=== PATIENT | male | born 1950 | race Caucasian/White ===

== ENCOUNTER 2022-11-21 08:44 | Day surgery (SDC) | payer MEDICARE, BC ==
[2022-11-17 12:44] VITALS: BMI 34.5
[2022-11-21] MEDS ORDERED: Iopamidol 370 76% 100 ML VIAL ONE (09:02)
[2022-11-21 09:52] LABS: #Eosinphils 0.1 thou/uL (0.0-0.7); #Monocytes 0.5 thou/uL (0.11-0.59); #Neutrophils 3.6 thou/uL (1.40-6.50); %Basophils 0.5 % (0.0-1.0); %Eosinophils 1.6 % (0.0-10.0); %Lymphocytes 33.1 % (21.0-51.0); %Monocytes 8.1 % (0.0-10.0); %Neutrophils 56.5 % (42.0-75.0); Hemoglobin 14.1 g/dL (14.0-18.0); Mean Corpuscular HGB CONC 33.8 g/dL (32.0-36.0); Mean Corpuscular Hemoglobin 29.4 pg (27.0-31.0); Mean Corpuscular Volume 87.1 fl (78.0-98.0); Mean Platelet Volume 9.2 fL (7.4-10.4); Platelet Count 244 10x3/uL (130-400); RBC Distribution Width 13.4 % (11.5-14.5); Red Blood Cell (RBC) Count 4.79 mill/uL (4.70-6.10); White Blood Cell (WBC) Count 6.3 10x3/uL (4.8-10.8)
[2022-11-21 10:04] LABS: Prothrombin Time 13.3 sec (12.0-14.7)
[2022-11-21 10:05] LABS: PTT 31.2 sec (22.9-36.1)
[2022-11-21 10:18] LABS: ALT (SGPT) 23 U/L (8-55); AST (SGOT) 18 U/L (5-34); Albumin 4.3 g/dL (3.4-4.8); Alkaline Phosphatase 98 U/L (40-110); Anion Gap 10 mmol/L (10-20); BUN (Urea Nitrogen) 17 mg/dL (8.4-25.7); Bilirubin, Direct 0.3 mg/dL (0.1-0.3); Bilirubin, Total 0.6 mg/dL (0.2-1.2); Calc. Creatinine Clearance 115 mL/min (70-130); Calcium 10.2 mg/dL (7.8-10.44); Carbon Dioxide 22 mmol/L (23-31); Cardiac Risk 2.6 (Less than 4.5); Chloride 109 mmol/L (98-107); Cholesterol 169 mg/dl (< 200 Desired); Estimated GFR 91; Globulin 2.9 g/dL (2.4-3.5); Glucose 100 mg/dL (83-110); HDL Cholesterol 66 mg/dL (>60 Neg Risk); LDL Cholesterol, Calculated 81 mg/dL; Potassium 4.3 mmol/L (3.5-5.1); Protein, Total 7.2 g/dL (5.8-8.1); Sodium 137 mmol/L (136-145); Triglycerides 110 mg/dL (Less than 150)
[2022-11-21] MEDS ORDERED: Lidocaine 1% (PF) 30 ML VIAL ONE (10:50)
[2022-11-21] MEDS ORDERED: Midazolam HCl 2 mg/2 ml Vial ONE (10:55)
[2022-11-21] MEDS ORDERED: fentaNYL 50 mcg/mL 1 mL Vial ONE (10:56)
[2022-11-21] MEDS ORDERED: Heparin 10,000 UNITS/ 10 ML VIAL ONE (11:24)
[2022-11-21 12:31] LABS: Actual Bicarbonate (HCO3v) 21.5 mEq/L (22-28); Base Excess -2.4 mEq/L (-2.0 to +3.0); Base Excess -2.8 mEq/L (-2.0 to +3.0); Calcium, Ionized (venous) 1.21 mmol/L (1.16-1.32); Chloride (VBG) 107 mmol/L (98-106); Chloride (VBG) 108 mmol/L (98-106); Hematocrit-VBG 41 % (42.0-52.0); Hemoglobin (Hb) 13.9 g/dL (12.6-17.4); Potassium (VBG) 3.95 mmol/L (3.70-5.30); Potassium (VBG) 4.04 mmol/L (3.70-5.30); Sodium 137.3 mmol/L (133-146); Sodium 137.7 mmol/L (133-146); pH (venous) 7.411 (7.32-7.43)
[2022-11-21 12:32] LABS: Analyzer IN Cardio OR
== END 2022-11-21 14:50 | disposition home or self-care (01) ==
LOC: SDC 08:44
PROVIDERS: ATTEND Internal Medicine Cardiovascular Disease
DX: I35.0 Nonrheumatic aortic (valve) stenosis (principal); I35.1 Nonrheumatic aortic (valve) insufficiency; E78.00 Pure hypercholesterolemia, unspecified; I11.0 Hypertensive heart disease with heart failure; I50.32 Chronic diastolic (congestive) heart failure; Z90.49 Acquired absence of other specified parts of digestive tract; Z90.89 Acquired absence of other organs; Z79.899 Other long term (current) drug therapy; Z88.1 Allergy status to other antibiotic agents; Z88.2 Allergy status to sulfonamides
CPT/HCPCS: 71045; 80053; 80061; 80076; 82805; 85025; 85610; 85730; 93005; 93460; C1751; C1769 ×3; C1894; J3010; 36415; 85347; 93010; 99152; 99153; J1644; J2001; J2250; Q9967

== ENCOUNTER 2022-12-09 15:00 | Inpatient (IN) | payer MEDICARE, BC ==
[2022-12-09 15:57] LABS: Hemoglobin 12.8 g/dL (13.5-17.5); Mean Corpuscular HGB CONC 33.7 g/dL (32.0-36.0); Mean Corpuscular Hemoglobin 29.7 pg (27.0-33.0); Mean Corpuscular Volume 88.2 fl (81.2-95.1); Mean Platelet Volume 9.5 fl (7.4-10.4); Platelet Count 260 10x3/uL (150-450); RBC Distribution Width 13.4 % (11.5-14.5); Red Blood Cell (RBC) Count 4.31 10x6/uL (4.32-5.72)
[2022-12-09 16:29] LABS: Anion Gap 12 mmol/L (10-20); BUN (Urea Nitrogen) 17 mg/dL (8.4-25.7); Calc. Creatinine Clearance 0 mL/min (70-130); Calcium 9.7 mg/dL (7.8-10.44); Carbon Dioxide 22 mmol/L (23-31); Chloride 111 mmol/L (98-107); Estimated GFR 88; Glucose 92 mg/dL (83-110); Potassium 4.4 mmol/L (3.5-5.1); Sodium 141 mmol/L (136-145)
[2022-12-12] MEDS ORDERED: Vancomycin (BATCH) 1.5 GRAM/300 ML BAG ONE (06:13)
[2022-12-12] MEDS ORDERED: Lidocaine 1% MPF 2 ML VIAL ONE (06:13)
[2022-12-12] MEDS ORDERED: Dexamethasone 4 mg/ml Vial ONE (06:14)
[2022-12-12] MEDS ORDERED: Albumin 5% 500 ML ONE (06:15)
[2022-12-12] MEDS ORDERED: Bupivacaine HCl 0.5%/Epinephrine 1:200,000/PF 30 ml Vial ONE (06:15)
[2022-12-12] MEDS ORDERED: Midazolam HCl 2 mg/2 ml Vial ONE (06:40)
[2022-12-12] MEDS ORDERED: Fentanyl 250 MCG/5 ML VIAL ONE ×2 (06:40→06:42)
[2022-12-12] MEDS ORDERED: Dexmedetomidine 200 MCG/2 ML VIAL ONE ×2 (06:41→06:42)
[2022-12-12] MEDS ORDERED: Heparin 10,000 UNITS/1 ML VIAL 30,000 UNITS in Sodium Chloride 0.9% 1,000 ML FS SCH (07:00)
[2022-12-12] MEDS ORDERED: Sodium Chloride 0.9% 100 ML ONE (07:23)
[2022-12-12] MEDS ORDERED: CEFAZOLIN 2 GM VIAL ONE (07:23)
[2022-12-12] MEDS ORDERED: Protamine Sulfate 250 MG/25 ML VIAL ONE (07:31)
[2022-12-12] MEDS ORDERED: Thrombin 5000 UNITS/5 ML VIAL ONE (07:31)
[2022-12-12] MEDS ORDERED: Heparin 30,000 units/30 ml VIAL ONE (07:31)
[2022-12-12] MEDS ORDERED: PROPOFOL 200 MG/20 ML VIAL ONE (07:31)
[2022-12-12] MEDS ORDERED: Esmolol 100 MG/10 ML VIAL ONE (07:31)
[2022-12-12] MEDS ORDERED: Norepinephrine 4 MG/4 ML VIAL ONE (07:31)
[2022-12-12] MEDS ORDERED: Lidocaine 2% PF 100 mg/5 ml Syringe ONE (07:31)
[2022-12-12] MEDS ORDERED: Heparin 5,000 UNITS/ML VIAL ONE (07:31)
[2022-12-12] MEDS ORDERED: Aminocaproic Acid 5 GM/20 ML VIAL ONE (07:31)
[2022-12-12] MEDS ORDERED: Cardioplegic Soln 1,000 ML BAG ONE (07:31)
[2022-12-12] MEDS ORDERED: NEOSTIGMINE 3 MG/3 ML SYR 3 MG/3 ML SYRINGE ONE (07:31)
[2022-12-12] MEDS ORDERED: Lidocaine 1% PF 5 ML VIAL ONE (07:31)
[2022-12-12] MEDS ORDERED: Mannitol 12.5 GM/50 ML ONE (07:31)
[2022-12-12] MEDS ORDERED: Vecuronium 10 MG VIAL ONE (07:31)
[2022-12-12] MEDS ORDERED: Nitroglycerin 50 MG/250 ML BOT ONE (07:31)
[2022-12-12] MEDS ORDERED: Glycopyrrolate 0.2 MG/ML 5 ML SYRINGE ONE (07:31)
[2022-12-12] MEDS ORDERED: Vancomycin 1 GM VIAL ONE (07:31)
[2022-12-12] MEDS ORDERED: Magnesium 5 GM/10 ML VIAL ONE (07:31)
[2022-12-12] MEDS ORDERED: Sodium Bicarb 50 MEQ/50 ML Abboject 8.4% SYRINGE ONE (07:31)
[2022-12-12] MEDS ORDERED: Calcium Chloride 1 GM/10 ML Abboject SYRINGE ONE (07:31)
[2022-12-12] MEDS ORDERED: Potassium Chloride 60 MEQ/30 ML VIAL ONE (07:31)
[2022-12-12] MEDS ORDERED: Insulin Regular 300 UNITS/3 ML VIAL ONE (09:20)
[2022-12-12] MEDS ORDERED: NOREPINEPHRINE 8 MG/250 ML-D5W 250 ML IVPB PRN (11:36)
[2022-12-12] MEDS ORDERED: fentaNYL 50 mcg/mL 1 mL Vial SLOW IVP PRN ×2 (11:36)
[2022-12-12] MEDS ORDERED: Guaifenesin DM 100-10/5 ML UDCUP PO PRN (11:36)
[2022-12-12] MEDS ORDERED: Ondansetron PF 4 MG/2 ML Vial IVP PRN (11:36)
[2022-12-12] MEDS ORDERED: Mag-Al 1200 mg/1200 mg/30 ML UDCUP PO PRN (11:36)
[2022-12-12] MEDS ORDERED: Morphine 2 MG/ML VIAL SLOW IVP PRN (11:36)
[2022-12-12] MEDS ORDERED: Ipratropium/Albuterol 3 ML NEB NEB PRN (11:36)
[2022-12-12] MEDS ORDERED: Hetastarch 6% 500 ML 500 ML IVPB PRN (11:36)
[2022-12-12] MEDS ORDERED: Bisacodyl 10 MG SUPP PR PRN (11:36)
[2022-12-12] MEDS ORDERED: Potassium Chloride 20 MEQ/100 ML PREMIX BAG IVPB PRN (11:36)
[2022-12-12] MEDS ORDERED: niCARdipine 25 MG in Sodium Chloride 0.9% 250 ML 250 ML IVPB PRN (11:36)
[2022-12-12] MEDS ORDERED: Nitroglycerin 50 MG/250 ML BOT 250 ML IVPB PRN (11:36)
[2022-12-12] MEDS ORDERED: Bisacodyl 5 MG TAB PO PRN (11:36)
[2022-12-12] MEDS ORDERED: traMADol HCl 50 MG TAB PO PRN ×2 (11:36)
[2022-12-12 11:41] LABS: #Eosinphils 0.1 thou/uL (0.0-0.7); #Monocytes 0.6 thou/uL (0.11-0.59); #Neutrophils 10.3 thou/uL (1.40-6.50); %Basophils 0.2 % (0.0-1.0); %Eosinophils 0.9 % (0.0-10.0); %Lymphocytes 15.5 % (21.0-51.0); %Monocytes 4.8 % (0.0-10.0); %Neutrophils 77.9 % (42.0-75.0); Hemoglobin 10.6 g/dL (14.0-18.0); Mean Corpuscular HGB CONC 33.2 g/dL (32.0-36.0); Mean Corpuscular Hemoglobin 29.9 pg (27.0-31.0); Mean Corpuscular Volume 89.9 fl (78.0-98.0); Mean Platelet Volume 9.2 fL (7.4-10.4); Platelet Count 166 10x3/uL (130-400); RBC Distribution Width 13.6 % (11.5-14.5); Red Blood Cell (RBC) Count 3.55 mill/uL (4.70-6.10); White Blood Cell (WBC) Count 13.3 10x3/uL (4.8-10.8)
[2022-12-12 11:52] VITALS: BMI 32.8
[2022-12-12 11:55] LABS: INR-International Normal Ratio 1.3; Prothrombin Time 16.9 sec (12.0-14.7)
[2022-12-12 11:58] LABS: Anion Gap 9 mmol/L (10-20); BUN (Urea Nitrogen) 16 mg/dL (8.4-25.7); Calc. Creatinine Clearance 114 mL/min (70-130); Calcium 8.2 mg/dL (7.8-10.44); Carbon Dioxide 22 mmol/L (23-31); Chloride 116 mmol/L (98-107); Estimated GFR 92; Glucose 117 mg/dL (83-110); Potassium 4.2 mmol/L (3.5-5.1); Sodium 143 mmol/L (136-145)
[2022-12-12] MEDS ORDERED: Ketorolac Tromethamine 30 MG/ML VIAL ONE (12:06)
[2022-12-12] MEDS ORDERED: Nitroglycerin 0.4 MG TAB (25 Tab Bottle) ONE (12:12)
[2022-12-12] MEDS ORDERED: Nitroglycerin 50 MG/250 ML BOT 250 ML ONE (12:13)
[2022-12-12] MEDS ORDERED: HUMULIN R 100 UNITS in Sodium Chloride 0.9% 100 ML IVPB SCH (12:30)
[2022-12-12] MEDS ORDERED: Glucagon 1 MG/ML KIT SC PRN (12:30)
[2022-12-12] MEDS ORDERED: Dextrose 5% in Water 1,000 ML IV PRN (12:30)
[2022-12-12] MEDS ORDERED: Dextrose 50% Abboject 50 ML SYRINGE SLOW IVP PRN (12:30)
[2022-12-12] MEDS: hydrALAZINE 20 MG/ML VIAL SLOW IVP PRN (13:09)
[2022-12-12] MEDS: Ketorolac Tromethamine 30 MG/ML VIAL IVP SCH ×3 (13:11→23:10)
[2022-12-12] MEDS: Potassium Chloride 20 MEQ in Lactated Ringer's 1,000 ML IV SCH (13:49)
[2022-12-12] MEDS: CEFAZOLIN 2 GM in Sodium Chloride 0.9% 100 ML IVPB SCH ×2 (15:20→23:10)
[2022-12-12] MEDS: Insulin Regular 300 UNITS/3 ML VIAL SC PRN ×3 (15:24→23:26)
[2022-12-12 17:04] LABS: Hemoglobin 11.3 g/dL (14.0-18.0)
[2022-12-12 17:22] LABS: Potassium 4.2 mmol/L (3.5-5.1)
[2022-12-12] MEDS ORDERED: ALPRAZolam 0.25 MG TAB PO PRN (17:34)
[2022-12-12] MEDS: Famotidine/PF 20 mg/2ml Vial SLOW IVP SCH (20:07)
[2022-12-12] MEDS ORDERED: Atorvastatin Calcium 20 MG TAB PO SCH (21:00)
[2022-12-12] MEDS ORDERED: Atorvastatin Calcium 40 MG TAB PO SCH (21:00)
[2022-12-12] MEDS: Acetaminophen 325 MG TAB PO PRN (21:31)
[2022-12-13] MEDS: Potassium Chloride 20 MEQ in Lactated Ringer's 1,000 ML IV SCH (03:27)
[2022-12-13 05:12] LABS: #Monocytes 1.1 thou/uL (0.11-0.59); #Neutrophils 9.3 thou/uL (1.40-6.50); %Basophils 0.1 % (0.0-1.0); %Lymphocytes 10.7 % (21.0-51.0); %Monocytes 9.3 % (0.0-10.0); %Neutrophils 79.6 % (42.0-75.0); Hemoglobin 11.2 g/dL (14.0-18.0); Mean Corpuscular Hemoglobin 29.2 pg (27.0-31.0); Mean Corpuscular Volume 88.5 fl (78.0-98.0); Mean Platelet Volume 9.8 fL (7.4-10.4); Platelet Count 180 10x3/uL (130-400); RBC Distribution Width 14.1 % (11.5-14.5); Red Blood Cell (RBC) Count 3.83 mill/uL (4.70-6.10); White Blood Cell (WBC) Count 11.7 10x3/uL (4.8-10.8)
[2022-12-13 05:32] LABS: Anion Gap 12 mmol/L (10-20); BUN (Urea Nitrogen) 17 mg/dL (8.4-25.7); Calc. Creatinine Clearance 113 mL/min (70-130); Calcium 8.5 mg/dL (7.8-10.44); Carbon Dioxide 18 mmol/L (23-31); Chloride 110 mmol/L (98-107); Estimated GFR 91; Glucose 109 mg/dL (83-110); Potassium 4.1 mmol/L (3.5-5.1); Sodium 136 mmol/L (136-145)
[2022-12-13] MEDS: Ketorolac Tromethamine 30 MG/ML VIAL IVP SCH ×3 (06:16→17:10)
[2022-12-13] MEDS: CEFAZOLIN 2 GM in Sodium Chloride 0.9% 100 ML IVPB SCH (06:17)
[2022-12-13] MEDS: Aspirin 325 MG TAB PO SCH (08:27)
[2022-12-13] MEDS: Famotidine/PF 20 mg/2ml Vial SLOW IVP SCH (08:28)
[2022-12-13] MEDS: Magnesium 2 GM/50 ML(in water) 2 GM in Premix Bag 1 BAG IVPB SCH (08:28)
[2022-12-13] MEDS: Insulin Regular 300 UNITS/3 ML VIAL SC PRN (08:36)
[2022-12-13] MEDS ORDERED: Fish Oil 1,000 MG CAP PO SCH (09:00)
[2022-12-13] MEDS ORDERED: Furosemide 20 MG TAB PO SCH (09:00)
[2022-12-13] MEDS: Fish Oil 1,000 MG CAP PO SCH ×2 (09:33→22:01)
[2022-12-13] MEDS: Furosemide 40 MG TAB PO SCH ×2 (09:33→13:47)
[2022-12-13] MEDS ORDERED: Vancomycin 1.5 GRAM/300 ML BAG 1.5 GM in Premix Bag 1 BAG IVPB SCH (10:00)
[2022-12-13 11:19] LABS: Actual Bicarbonate (HCO3a) 19.8 mEq/L (22-28); Analyzer IN Cardio OR; Base Excess (BEa) -5.3 mEq/L (-2.0 to +3.0); CO2 Tension 36.7 mmHg (35.0-45.0); Calcium, Ionized (arterial) 1.16 mmol/L (1.12-1.30); Carboxyhemoglobin (COHb) 0.3 gm% (0.0-3.0); Hematocrit-ABG 34 % (42.0-52.0); Hemoglobin (Hb) 11.5 g/dL (14.0-18.0); O2 Tension (PaO2), arterial 344.8 mmHg (> 70.0); Potassium - ABG Lab 3.98 mmol/L (3.70-5.30); pH, Arterial 7.349 (7.35-7.45)
[2022-12-13 11:19] LABS: Actual Bicarbonate (HCO3a) 19.8 mEq/L (22-28); Analyzer IN Cardio OR; Base Excess (BEa) -5.1 mEq/L (-2.0 to +3.0); CO2 Tension 36.4 mmHg (35.0-45.0); Calcium, Ionized (arterial) 1.11 mmol/L (1.12-1.30); Carboxyhemoglobin (COHb) 0.3 gm% (0.0-3.0); Hematocrit-ABG 29 % (42.0-52.0); O2 Tension (PaO2), arterial 381.7 mmHg (> 70.0); pH, Arterial 7.354 (7.35-7.45)
[2022-12-13 11:19] LABS: Actual Bicarbonate (HCO3a) 22.6 mEq/L (22-28); Analyzer IN Cardio OR; Base Excess (BEa) -3.2 mEq/L (-2.0 to +3.0); CO2 Tension 43.3 mmHg (35.0-45.0); Calcium, Ionized (arterial) 1.22 mmol/L (1.12-1.30); Carboxyhemoglobin (COHb) 0.6 gm% (0.0-3.0); Hematocrit-ABG 38 % (42.0-52.0); Hemoglobin (Hb) 12.9 g/dL (14.0-18.0); O2 Tension (PaO2), arterial 361.4 mmHg (> 70.0); Potassium - ABG Lab 4.04 mmol/L (3.70-5.30); pH, Arterial 7.336 (7.35-7.45)
[2022-12-13 11:20] LABS: Actual Bicarbonate (HCO3a) 21.6 mEq/L (22-28); Analyzer IN Cardio OR; Base Excess (BEa) -5.7 mEq/L (-2.0 to +3.0); CO2 Tension 50.7 mmHg (35.0-45.0); Calcium, Ionized (arterial) 1.17 mmol/L (1.12-1.30); Carboxyhemoglobin (COHb) 0.3 gm% (0.0-3.0); Hematocrit-ABG 31 % (42.0-52.0); Hemoglobin (Hb) 10.5 g/dL (14.0-18.0); O2 Tension (PaO2), arterial 105.2 mmHg (> 70.0); Potassium - ABG Lab 3.99 mmol/L (3.70-5.30); pH, Arterial 7.247 (7.35-7.45)
[2022-12-13 11:20] LABS: Actual Bicarbonate (HCO3v) 21.5 mEq/L (22-28); Analyzer IN Cardio OR; Calcium, Ionized (venous) 1.13 mmol/L (1.16-1.32); Chloride (VBG) 110 mmol/L (98-106); Hematocrit-VBG 28 % (42.0-52.0); Hemoglobin (Hb) 9.5 g/dL (12.6-17.4); Potassium (VBG) 3.95 mmol/L (3.70-5.30); Sodium 137.5 mmol/L (133-146)
[2022-12-13 11:20] LABS: Actual Bicarbonate (HCO3a) 22.1 mEq/L (22-28); Analyzer IN Cardio OR; Base Excess (BEa) -4.4 mEq/L (-2.0 to +3.0); CO2 Tension 46.7 mmHg (35.0-45.0); Calcium, Ionized (arterial) 1.09 mmol/L (1.12-1.30); Carboxyhemoglobin (COHb) 0.3 gm% (0.0-3.0); Hematocrit-ABG 27 % (42.0-52.0); Hemoglobin (Hb) 9.2 g/dL (14.0-18.0); O2 Tension (PaO2), arterial 451.5 mmHg (> 70.0); Potassium - ABG Lab 4.34 mmol/L (3.70-5.30); pH, Arterial 7.292 (7.35-7.45)
[2022-12-13 11:20] LABS: Actual Bicarbonate (HCO3a) 21.8 mEq/L (22-28); Analyzer IN Cardio OR; Base Excess (BEa) -3.4 mEq/L (-2.0 to +3.0); CO2 Tension 40.2 mmHg (35.0-45.0); Calcium, Ionized (arterial) 1.18 mmol/L (1.12-1.30); Carboxyhemoglobin (COHb) 0.3 gm% (0.0-3.0); Hematocrit-ABG 29 % (42.0-52.0); O2 Tension (PaO2), arterial 122.5 mmHg (> 70.0); Potassium - ABG Lab 4.07 mmol/L (3.70-5.30); pH, Arterial 7.353 (7.35-7.45)
[2022-12-13 11:21] LABS: Puncture Site Arterial Line
[2022-12-13 11:21] LABS: Puncture Site Arterial Line
[2022-12-13 11:22] LABS: Puncture Site Arterial Line
[2022-12-13 11:22] LABS: Puncture Site Arterial Line
[2022-12-13 11:22] LABS: Puncture Site Arterial Line
[2022-12-13 11:23] LABS: Puncture Site Arterial Line
[2022-12-13] MEDS ORDERED: Insulin Glargine 30 UNITS/0.3 ML VIAL SC PRN (12:27)
[2022-12-13] MEDS: Potassium Chloride 10 MEQ TAB PO SCH (17:10)
[2022-12-13] MEDS ORDERED: Rosuvastatin 5 MG TAB PO SCH (21:00)
[2022-12-13] MEDS ORDERED: Non-Formulary Item 1 EACH (Trazodone Hcl [Trazodone Hcl] 100 MG Tablet) PO SCH (21:00)
[2022-12-13] MEDS: hydrALAZINE 20 MG/ML VIAL SLOW IVP PRN (21:10)
[2022-12-13] MEDS: Ezetimibe 10 MG TAB PO SCH (22:00)
[2022-12-13] MEDS: traZODone HCl 50 MG TAB PO SCH (22:00)
[2022-12-13] MEDS: Rosuvastatin 10 MG TAB PO SCH (22:01)
[2022-12-13] MEDS: Acetaminophen 325 MG TAB PO PRN (22:04)
[2022-12-14] MEDS: Ketorolac Tromethamine 30 MG/ML VIAL IVP SCH ×4 (00:33→20:56)
[2022-12-14] MEDS: hydrALAZINE 20 MG/ML VIAL SLOW IVP PRN ×2 (04:08→20:51)
[2022-12-14 04:52] LABS: #Monocytes 1.1 thou/uL (0.11-0.59); #Neutrophils 9.4 thou/uL (1.40-6.50); %Basophils 0.2 % (0.0-1.0); %Eosinophils 0.1 % (0.0-10.0); %Lymphocytes 13.3 % (21.0-51.0); %Monocytes 8.7 % (0.0-10.0); %Neutrophils 77.3 % (42.0-75.0); Hemoglobin 11.1 g/dL (14.0-18.0); Mean Corpuscular HGB CONC 33.3 g/dL (32.0-36.0); Mean Corpuscular Hemoglobin 29.6 pg (27.0-31.0); Mean Corpuscular Volume 88.8 fl (78.0-98.0); Mean Platelet Volume 9.9 fL (7.4-10.4); Platelet Count 167 10x3/uL (130-400); RBC Distribution Width 14.4 % (11.5-14.5); Red Blood Cell (RBC) Count 3.75 mill/uL (4.70-6.10); White Blood Cell (WBC) Count 12.2 10x3/uL (4.8-10.8)
[2022-12-14 05:18] LABS: Anion Gap 12 mmol/L (10-20); BUN (Urea Nitrogen) 16 mg/dL (8.4-25.7); Calc. Creatinine Clearance 115 mL/min (70-130); Calcium 9.3 mg/dL (7.8-10.44); Carbon Dioxide 22 mmol/L (23-31); Chloride 109 mmol/L (98-107); Estimated GFR 91; Glucose 115 mg/dL (83-110); Potassium 4.2 mmol/L (3.5-5.1); Sodium 139 mmol/L (136-145)
[2022-12-14] MEDS: Potassium Chloride 10 MEQ TAB PO SCH (07:50)
[2022-12-14] MEDS: Furosemide 40 MG TAB PO SCH ×2 (07:50→15:13)
[2022-12-14] MEDS: Fish Oil 1,000 MG CAP PO SCH ×2 (07:50→20:50)
[2022-12-14] MEDS: Acetaminophen 325 MG TAB PO PRN ×2 (07:50→20:50)
[2022-12-14] MEDS: Magnesium 2 GM/50 ML(in water) 2 GM in Premix Bag 1 BAG IVPB SCH (07:50)
[2022-12-14] MEDS: Metoprolol Tartrate 25 MG TAB PO SCH ×2 (09:30→20:50)
[2022-12-14] MEDS: Aspirin 325 MG TAB PO SCH (20:00)
[2022-12-14] MEDS: traZODone HCl 50 MG TAB PO SCH (20:50)
[2022-12-14] MEDS: Ezetimibe 10 MG TAB PO SCH (20:51)
[2022-12-14] MEDS: Rosuvastatin 10 MG TAB PO SCH (20:51)
[2022-12-15] MEDS: Ketorolac Tromethamine 30 MG/ML VIAL IVP SCH ×3 (00:41→13:25)
[2022-12-15] MEDS ORDERED: diphenhydrAMINE 25 MG CAP PO PRN (02:16)
[2022-12-15] MEDS ORDERED: Zolpidem Tartrate 5 MG TAB PO PRN (02:16)
[2022-12-15] MEDS ORDERED: Mineral Oil ENEMA PR PRN (02:16)
[2022-12-15] MEDS ORDERED: Milk Of Magnesia 30 ML UDCUP PO PRN (02:16)
[2022-12-15] MEDS ORDERED: Artificial Tear Sol 15 ML BOT EA EYE PRN (02:16)
[2022-12-15] MEDS ORDERED: Insulin Regular 300 UNITS/3 ML VIAL SC PRN (02:30)
[2022-12-15 06:54] LABS: #Eosinphils 0.1 thou/uL (0.0-0.7); #Monocytes 0.7 thou/uL (0.11-0.59); #Neutrophils 8.2 thou/uL (1.40-6.50); %Basophils 0.2 % (0.0-1.0); %Lymphocytes 11.8 % (21.0-51.0); %Monocytes 7.1 % (0.0-10.0); %Neutrophils 79.6 % (42.0-75.0); Hemoglobin 11.1 g/dL (14.0-18.0); Mean Corpuscular HGB CONC 33.8 g/dL (32.0-36.0); Mean Corpuscular Hemoglobin 30.2 pg (27.0-31.0); Mean Corpuscular Volume 89.1 fl (78.0-98.0); Mean Platelet Volume 9.5 fL (7.4-10.4); Platelet Count 175 10x3/uL (130-400); RBC Distribution Width 14.1 % (11.5-14.5); Red Blood Cell (RBC) Count 3.68 mill/uL (4.70-6.10); White Blood Cell (WBC) Count 10.3 10x3/uL (4.8-10.8)
[2022-12-15 07:15] LABS: Anion Gap 12 mmol/L (10-20); BUN (Urea Nitrogen) 14 mg/dL (8.4-25.7); Calc. Creatinine Clearance 124 mL/min (70-130); Calcium 9.4 mg/dL (7.8-10.44); Carbon Dioxide 24 mmol/L (23-31); Chloride 106 mmol/L (98-107); Estimated GFR 94; Glucose 106 mg/dL (83-110); Potassium 3.9 mmol/L (3.5-5.1); Sodium 138 mmol/L (136-145)
[2022-12-15] MEDS: Fish Oil 1,000 MG CAP PO SCH ×2 (09:12→21:18)
[2022-12-15] MEDS: Furosemide 40 MG TAB PO SCH ×2 (09:12→15:56)
[2022-12-15] MEDS: Aspirin 325 MG TAB PO SCH (09:12)
[2022-12-15] MEDS: Potassium Chloride 10 MEQ TAB PO SCH ×2 (09:12→15:56)
[2022-12-15] MEDS: Losartan 25 MG TAB PO SCH (09:13)
[2022-12-15] MEDS: Metoprolol Tartrate 25 MG TAB PO SCH ×2 (09:13→21:17)
[2022-12-15] MEDS: traZODone HCl 50 MG TAB PO SCH (21:17)
[2022-12-15] MEDS: Ezetimibe 10 MG TAB PO SCH (21:17)
[2022-12-15] MEDS: Rosuvastatin 10 MG TAB PO SCH (21:17)
[2022-12-16] MEDS ORDERED: Ciprofloxacin 500 MG TAB PO SCH (07:15)
[2022-12-16] MEDS: Potassium Chloride 10 MEQ TAB PO SCH (09:49)
[2022-12-16] MEDS: Furosemide 40 MG TAB PO SCH (09:49)
[2022-12-16] MEDS: Fish Oil 1,000 MG CAP PO SCH (09:49)
[2022-12-16] MEDS: Aspirin 325 MG TAB PO SCH (09:49)
[2022-12-16] MEDS: Metoprolol Tartrate 25 MG TAB PO SCH (09:50)
[2022-12-16] MEDS: Losartan 25 MG TAB PO SCH (09:50)
[2022-12-16 12:36] VITALS: TEMP 98.6
[2022-12-16 14:10] VITALS: BP 121/79
== END 2022-12-16 14:25 | disposition home or self-care (01) | DRG 221 ==
LOC: SURG A 12-12 05:50 → CCU 12-12 10:26 → 2NO 12-14 18:27
PROVIDERS: ADMIT Thoracic Surgery (Cardiothoracic Vascular Surgery); ATTEND Thoracic Surgery (Cardiothoracic Vascular Surgery)
PROC: 021109W Bypass Coronary Artery, Two Arteries from Aorta with Autologous Venous Tissue, Open Approach (ICD-10-PCS; principal; 2022-12-12)
PROC: 02RF08Z Replacement of Aortic Valve with Zooplastic Tissue, Open Approach (ICD-10-PCS; 2022-12-12)
PROC: 06BQ4ZZ Excision of Left Saphenous Vein, Percutaneous Endoscopic Approach (ICD-10-PCS; 2022-12-12)
PROC: 02L70CK Occlusion of Left Atrial Appendage with Extraluminal Device, Open Approach (ICD-10-PCS; 2022-12-12)
PROC: 5A1221Z Performance of Cardiac Output, Continuous (ICD-10-PCS; 2022-12-12)
PROC: 4A133R1 Monitoring of Arterial Saturation, Peripheral, Percutaneous Approach (ICD-10-PCS; 2022-12-12)
DX: I35.0 Nonrheumatic aortic (valve) stenosis (principal); I25.10 Atherosclerotic heart disease of native coronary artery without angina pectoris; R33.9 Retention of urine, unspecified; I10 Essential (primary) hypertension; E78.2 Mixed hyperlipidemia; Z79.82 Long term (current) use of aspirin; Z79.899 Other long term (current) drug therapy; Z88.2 Allergy status to sulfonamides; Z85.46 Personal history of malignant neoplasm of prostate
CPT/HCPCS: 36416; 36430; 71045; 80048; 82805; 85025; 85027; 85610; 85730; 86850; 86900; 86901; 93005; 93010; 93798; C1713; C1751; C1889; J0360; J1100; J1642; J1644; J1815; J1885; J2001; J2150; J2250; J2704; J2720; J3010; J3370; J3475; J3480; J3490; J7120; P9045; S0017; S0028